=== PATIENT | male | born 1990 | race Caucasian/White ===

== ENCOUNTER 2019-09-13 18:24 | Emergency (ER) | payer MEDICAID ==
[~2019-09-13] VITALS: Ht 182.9 cm; Wt 110.0 kg
[2019-09-13 18:28] VITALS: BP 140/70
[2019-09-13 19:25] LABS: BASOPHILS # (AUTO) 0.03 x10^3/uL (0-0.1); BASOPHILS % (AUTO) 0 % (0-1); EOSINOPHILS # (AUTO) 0.01 x10^3/uL (0-0.4); EOSINOPHILS % (AUTO) 0 % (1-7); LYMPHOCYTES # (AUTO) 2.44 x10^3/uL (1-3.4); LYMPHOCYTES % (AUTO) 18 % (22-44); MD NO; MEAN CORPUSCULAR HEMOGLOBIN 31.4 pg (27.5-34.5); MEAN CORPUSCULAR HGB CONC 33.7 g/dL (33.2-36.2); MEAN PLATELET VOLUME 8.8 fL (7.4-10.4); MONOCYTES # (AUTO) 0.38 x10^3/uL (0.2-0.8); MONOCYTES % (AUTO) 3 % (2-9); NEUTROPHILS # (AUTO) 10.42 x10^3/uL (1.8-6.8); NEUTROPHILS % (AUTO) 79 % (42-75); PLATELET COUNT 236 x10^3/uL (130-400); RED BLOOD COUNT 5.12 x10^6/uL (4.38-5.82); RED CELL DISTRIBUTION WIDTH 12.7 % (9.4-14.8)
[2019-09-13] MEDS ORDERED: MECLIZINE CHEWABLE 25 MG TAB PO ONE (19:30)
[2019-09-13] MEDS ORDERED: ONDANSETRON ODT 4 MG PO ONE (19:30)
[2019-09-13] MEDS ORDERED: ONDANSETRON ODT 4 MG ONE (19:37)
[2019-09-13] MEDS ORDERED: MECLIZINE CHEWABLE 25 MG TAB ONE (19:38)
--- NOTE | 2019-09-13 19:42 | NUR ---
REPORT OF PT FROM MASON ROBERT AND ASSUMING CARE OF PT AT THIS TIME. PT MEDICATED PER MAR AT THIS TIME. PT HAS CALL LIGHT WITHIN REACH AND DENIES ANY OTHER NEEDS AT THIS TIME.
--- NOTE | 2019-09-13 20:52 | NUR ---
PT D/C WITH D/C SUMMARY AND SCRIPTS. ALL QEUSTIONS ANSWERED. PT AMBULATES TO REGISTRATION DESK WITH STEADY GAIT AND DENIES ANY OTHER NEEDS PERTAINING TO THIS VISIT. PT VERBALIZES UNDERSTANDING OF F/U INSTRUCTIONS WITH PCP. PT IV DC WITH TIP INTACT.
== END 2019-09-13 20:55 | disposition home or self-care (01) ==
LOC: ED 19:24
DX: R42 Dizziness and giddiness (principal); R11.0 Nausea; R94.31 Abnormal electrocardiogram [ECG] [EKG]
CPT/HCPCS: 36415; 85025; 93005; 99284; Q0162